=== PATIENT | male | born 1980 | race Two or more races ===

== ENCOUNTER 2022-07-25 21:50 | Emergency (ER) | payer OTHER, SELFPAY ==
--- NOTE | ~2022-07-25 | XR_ITS ---
EXAMINATION: XR SHOULDER, LEFT CLINICAL INFORMATION: Pain after fall COMPARISON: None TECHNIQUE: Four views of the left shoulder. FINDINGS: Glenohumeral alignment is anatomic. There is prominent arthritic change of the glenoid with subchondral cyst formation. Spurring is noted along the adjacent inferior humeral head. No acute fracture is seen. The acromioclavicular joint is intact. XR/XR shoulder LT min 2V IMPRESSION: No acute findings identified. Arthritic changes at the glenohumeral joint.
--- NOTE | ~2022-07-25 | XR_ITS ---
EXAMINATION: XR LUMBAR SPINE XR SACRUM/COCCYX CLINICAL INFORMATION: Pain after fall COMPARISON: None TECHNIQUE: 3 views of the lumbar spine. 3 views of the sacrum/coccyx. FINDINGS: There is anatomic alignment of the lumbar vertebral bodies and posterior inferior vertebral body heights are maintained. There is mild disc space narrowing and osteophyte formation at L5-S1. No sacral abnormality identified. No acute fracture is seen. Sacroiliac joints are maintained. XR/XR lumbar spine 2-3V IMPRESSION: No acute findings identified.
--- NOTE | ~2022-07-25 | XR_ITS ---
EXAMINATION: XR LUMBAR SPINE XR SACRUM/COCCYX CLINICAL INFORMATION: Pain after fall COMPARISON: None TECHNIQUE: 3 views of the lumbar spine. 3 views of the sacrum/coccyx. FINDINGS: There is anatomic alignment of the lumbar vertebral bodies and posterior inferior vertebral body heights are maintained. There is mild disc space narrowing and osteophyte formation at L5-S1. No sacral abnormality identified. No acute fracture is seen. Sacroiliac joints are maintained. XR/XR sacrum coccyx min 2V IMPRESSION: No acute findings identified.
[2022-07-25 22:13] VITALS: BP 137/76; PULSE 74; RESP 14; O2SAT 96; BMI 39.6
[2022-07-25 23:57] VITALS: BMI 29.2
--- NOTE | 2022-07-26 00:15 | ED_ITS ---
HPI - Back Pain/Injury General Chief Complaint: Back Pain/Injury Stated Complaint: lower back and shoulder pain Time Seen by Provider: 07/26/22 00:13 Source: patient and family ( Spouse) Mode of arrival: ambulatory Limitations: no limitations History of Present Illness HPI Narrative: 42-year-old male came in for evaluation of left shoulder pain and low back pain after falling. Patient was at work when he slipped on the wet floor fell back for hurting his lower back and left shoulder, no head injury or neck injury or neck pain. Patient was not able to work for the past 2 days from severe pain in her lower back. No weakness, no numbness, no urinary or stool incontinence. Patient had a history of left shoulder surgery after the fall patient feels clicking on the left shoulder. Related Data Allergies Allergy/AdvReac Type Severity Reaction Status Date / Time shellfish derived Allergy Anaphylaxis Verified 07/25/22 23:56 Review of Systems Review of Systems: all other systems are reviewed and are negative Constitutional: Reports as per HPI and Reports no additional constitutional complaints Eyes: Reports as per HPI and Reports no additional eye complaints Reports system reviewed and no additional complaints, except as documented Cardiovascular: Reports as per HPI and Reports no additional cardiovascular complaints Respiratory: Reports as per HPI and Reports no additional respiratory complaints Gastrointestinal: Reports as per HPI and Reports no additional gastrointestinal complaints Genitourinary: Reports no additional female genitourinary complaints Musculoskeletal: Reports no additional musculoskeletal complaints Skin/Breast: Reports system reviewed and no additional complaints, except as docu Psychiatric: Reports no additional psychiatric complaints Endocrine: Reports no additional endocrine complaints Hematologic/Lymphatic: Reports no additional hematologic/lymphatic complaints Allergic/Immunologic: Reports no additional allergic/immunologic complaints Reports system reviewed and no additional complaints, except as documented and Reports Abnormal speech present [facility] Social History Social History Advance Directives: No Advance Directives Information Provided: No Physical Exam Vital Signs: Vital Signs: Last Vital Signs Pulse 74 07/25/22 22:13 Resp 14 07/25/22 22:13 BP 137/76 07/25/22 22:13 Pulse Ox 96 07/25/22 22:13 O2 Del Method Blow By 07/25/22 22:13 BMI result Body Mass Index 29.2 vital signs have been reviewed as appeared to be correct. Blood pressure normal. Heart rate normal. Respiration rate normal. Temperature normal. Oxygen saturation normal. Appearance: Alert. Oriented X3. No acute distress. Head: Normal external exam. Normocephalic. Atraumatic. No Mixon signs noted. No raccoon eyes noted Eyes: PERRLA. EOMI. Conjunctiva and sclera normal. Eyelids normal. ENT: TM's Normal. Pharynx normal. Uvula midline. Moist mucous membranes. No trismus noted. No drooling noted. No muffled voice noted. Neck: Normal inspection. Neck supple. FROM. No adenopathy. Thyroid Normal. No meningeal signs. No neck mass noted. CVS: Normal heart rate and rhythm. Heart sound normal. No murmurs noted. Pulses normal throughout. Respiratory: No respiratory distress. Painless inspiration. Breath sounds normal. No wheezes/rales/rhonchi noted. Chest nontender. No accessory muscle usage noted or decreased air movement noted. Abdomen: Soft and nontender. Bowel sounds normal in all 4 quadrants. No distention noted. No organomegaly noted. No visible injury noted. Back: No CVA tenderness. Full range of motion noted. Mild tenderness in the midline of the lower lumbar region and sacral region, no deformity, no step-off. no hematoma is appreciated. Skin: Skin warm and dry. Normal skin color. Normal skin turgor. No rashes/lesions/lacerations noted. Extremities: left shoulder exam: No deformity, no dislocation, full range of motion, neurovascularly intact. no hematoma is appreciated Neuro: Oriented X 3. Cranial nerve exam: II-XII are grossly intact No motor deficit. No sensory deficit. Reflexes normal. MDM - Back Pain/Injury Imaging Data Left shoulder x-ray: Attestation: I personally reviewed and interpreted this imaging study as follows: Radiologist's impression: no acute pathology. Lumbar/sacral spine x-ray: Attestation: I personally reviewed and interpreted this imaging study as follows: Radiologist's impression: no acute osseous fracture. Discharge Plan Discharge Clinical Impression: Contusion of left shoulder, Contusion of lower back Patient Disposition: Home, Self-Care Instructions: Contusion in Adults (ED) Additional Instructions: no strenuous activity, no heavy lifting. Apply warm compression on painful area. Take ibuprofen 200 mg tablets [id number] every 6 hours if needed for pain. Referrals: Benjie Roberson MD [Primary Care Provider] - Stand Alone Forms: Work/School Release
[2022-07-26] MEDS: oxyCODONE HCl Immed Release 5 MG TABLET PO (00:40)
[2022-07-26 00:41] VITALS: RESP 18
[2022-07-26 02:20] VITALS: BP 146/92; PULSE 62; RESP 16; O2SAT 99
--- NOTE | 2022-07-26 02:34 | PC.NURSE ---
pt a&o x3. at bedside. 4 out of 10 pain at time of discharge. skin PWD. work note provided to pt. discharge packet provided to pt. pt verbalized understanding of discharge plan
== END 2022-07-26 02:25 | disposition home or self-care (01) ==
PROVIDERS: Emergency Provider Emergency Medicine; PCP Internal Medicine
DX: M54.50 Low back pain, unspecified (principal); M25.512 Pain in left shoulder
CPT/HCPCS: 72100; 72220; 73030; 99283; 99284

== ENCOUNTER 2022-08-01 22:27 | Emergency (ER) | payer OTHER, SELFPAY ==
[2022-08-01 22:36] VITALS: BP 145/81; PULSE 89; RESP 16; TEMP 36.3; O2SAT 98; BMI 30.5
--- NOTE | 2022-08-01 23:57 | ED_ITS ---
HPI - Back Pain/Injury General Chief Complaint: Back Pain/Injury Stated Complaint: back pain due to work inj Time Seen by Provider: 08/01/22 23:57 Source: patient Mode of arrival: ambulatory Limitations: no limitations History of Present Illness HPI Narrative: PATIENT APPARENTLY FELL ON 07/26 WHILE AT WORK SLIPPED ON THE FLOOR LANDED ON HIS BACK PATIENT DENIES ANY PRIOR LOWER BACK PAIN PATIENT WAS SEEN IN ER ON 0 07/26 X-RAY WAS NEGATIVE PATIENT DISCHARGED ON IBUPROFEN COMES BACK HERE AGAIN PAIN IS STILL GOING ON PATIENT UNDERSTANDING. NO PARESTHESIAS NO MOTOR WEAKNESS NO BOWEL BLADDER INVOLVEMENT NO LOSS OF SENSATION IN THE BACK PATIENT AMBULATORY WITHOUT ANY SIGNIFICANT STRESS ALSO PATIENT COMPLAINING OF LEFT SHOULDER PAIN PATIENT HAD PRIOR SURGERY AND LEFT SHOULDER X-RAY WAS NEGATIVE ON 07/26 Related Data Previous Rx's Medication Instructions Recorded cyclobenzaprine 10 mg tablet 10 mg PO Q8H #20 tabs 08/02/22 ibuprofen 600 mg tablet 600 mg PO Q8H PRN pain #30 tabs 08/02/22 lidocaine 4 % topical patch 1 patch topical DAILY PRN pain #10 08/02/22 ea Allergies Allergy/AdvReac Type Severity Reaction Status Date / Time shellfish derived Allergy Anaphylaxis Verified 08/01/22 22:35 Review of Systems Review of Systems: Yes all other systems are reviewed and are negative REPLACED BY [facility] Social History Social History Advance Directives: No Advance Directives Information Provided: Yes Physical Exam Vital Signs: Vital Signs: Last Vital Signs Temp 97.3 F 08/01/22 22:36 Pulse 89 08/01/22 22:36 Resp 16 08/01/22 22:36 BP 145/81 H 08/01/22 22:36 Pulse Ox 98 08/01/22 22:36 O2 Del Method 08/01/22 22:36 BMI result Body Mass Index 30.5 Appearance: Alert. Oriented X3. No acute distress. Eyes: PERRLA, No Nystagmus ENT: Pharynx normal. Oral Mucosa moist Neck: Normal inspection. Neck supple. CVS: Normal heart rate and rhythm. Pulses normal. Respiratory: No respiratory distress. Equal air entry bilateral, no wheezing/rales/rhonchi Abdomen: Soft and nontender. Bowel sounds are present, no mass palpable, no CVA tenderness Skin: Skin warm and dry. Normal skin color. Normal skin turgor. Extremities: No lower extremity edema. No calf tenderness mild left shoulder tenderness good range of movement Back: Soft tissue tenderness right paraspinal L3-L4 area no percussion tenderness on the spine patient able to bend and touch his feet able to ambulate able to stand on single foot SLR negative bilaterally sexual sensory intact Neuro: Oriented X 3. No motor deficit. No sensory deficit.No cerebellar signs , cranial nerves II-XII intact MDM - Back Pain/Injury MDM Narrative Medical decision making narrative: Patient clinically musculoskeletal pain in the back no significant spinal cord involvement was noticed by examination no peripheral nerve involved patient will discharge on Flexeril and ibuprofen Discharge Plan Discharge Clinical Impression: Strain of lumbar region Patient Disposition: Home, Self-Care Instructions: Low Back Strain (ED) Additional Instructions: Likely you have musculoskeletal back pain Take muscle relaxant and pain medication as prescribed Activity as tolerated Follow with PCP/orthopedic if problem continues Prescriptions: New ibuprofen 600 mg tablet 600 mg PO Q8H PRN (Reason: pain) Qty: 30 0RF cyclobenzaprine 10 mg tablet 10 mg PO Q8H Qty: 20 0RF lidocaine 4 % adhesive patch,medicated 1 patch topical DAILY PRN (Reason: pain) Qty: 10 0RF Stand Alone Forms: Work/School Release Interventions: ED Discharge Assessment Last Done: 08/02/22 01:21 Discharge Date/Time: 08/02/22 01:22
[2022-08-02] MEDS: Cyclobenzaprine HCl 10 MG TABLET PO (00:21)
[2022-08-02] MEDS: Ibuprofen 600 MG TABLET PO (00:23)
== END 2022-08-02 01:22 | disposition home or self-care (01) ==
PROVIDERS: Emergency Provider Internal Medicine; PCP Internal Medicine
DX: S39.012A Strain of muscle, fascia and tendon of lower back, initial encounter (principal); W01.0XXA Fall on same level from slipping, tripping and stumbling without subsequent striking against object, initial encounter; Y93.89 Activity, other specified; Y92.512 Supermarket, store or market as the place of occurrence of the external cause; Y99.0 Civilian activity done for income or pay
CPT/HCPCS: 99283